=== PATIENT | male | born 1990 | race Caucasian/White ===

== ENCOUNTER 2022-08-19 08:13 | Outpatient (CLI) | payer BC, SELFPAY ==
--- NOTE | 2022-08-19 08:30 | ECG_ITS ---
Measurements Intervals [place] Rate: 65 P: 65 OK: 180 QRS: 41 QRSD: 86 T: 21 QT: 388 QTc: 406 Interpretive Statements SINUS RHYTHM VOLTAGE CRITERIA FOR LVH BASELINE ARTIFACT- I, II, III, AVR, AVL, AVF, V1 BORDERLINE ECG NO PREVIOUS ECG AVAILABLE FOR COMPARISON Electronically Signed On 08-19-2022 9:13:46 [employer]AKESHOP CLEANER by Mao Heredia D.O.
[2022-08-19 09:04] LABS: Anion Gap 6 mmol/L (8-16); Blood Urea Nitrogen 14 mg/dL (9-20); Calcium 9.2 mg/dL (8.4-10.2); Carbon Dioxide 30 mmol/L (22-30); Chloride 99 mmol/L (98-107); Estimated Glomerular Filt Rate > 60; Glucose 96 mg/dL (65-110); Potassium 4.1 mmol/L (3.4-5.0); Sodium 135 mmol/L (137-145)
== END 2022-08-19 08:14 | disposition home or self-care (01) ==
LOC: ANHSURGERY 08:21
PROVIDERS: Anesthesiology; Visit Provider Surgery Plastic and Reconstructive Surgery
DX: I10 Essential (primary) hypertension (principal); Z79.899 Other long term (current) drug therapy
CPT/HCPCS: 36415; 80048; 93005

== ENCOUNTER 2022-08-24 00:40 | Day surgery (SDC) | payer OTHER, SELFPAY ==
[2022-08-12 14:37] VITALS: BMI 23.6
--- NOTE | 2022-08-12 14:41 | PC.NURSE ---
Report to the Outpatient Waiting Room, entrance under the green pavilion located off [facility], at time 11:30 on date 08/24/22. Planned Procedure Time: 1:30. Time changes happen often and if your time is changed the preop area will call you the afternoon before. - You and your visitor will be asked to self-screen and do not enter if you have any COVID symptoms. - Only one visitor is requested with a max of two and NO children visitors are allowed at this time. - The patient visitor may be requested to leave or wait in car when not with patient due to distancing restrictions. - A mask is REQUIRED within the hospital. Patients may have clear liquids (water, carbonated beverages, clear teas, apple juice) until 3 hours prior to surgery (10:30) with a maximum of 20 ounces. - No food from midnight until time of surgery Take the following medications with a SIP of water the morning of surgery: INHALER IF NEEDED Medications to discontinue per physician: N/A Date to take last dose: N/A Please no make-up, nail setswana, hairspray, perfume, deodorant, or body powder the day of surgery. No jewelry (including any body piercings) or valuables the day of surgery, leave them at home. Please take a shower or bath the night before, or the morning of, surgery with an antibacterial soap. Wear comfortable, loose fitting clothing. - Jewelry must be removed prior to entering the operating room. Rings and piercings that are not removed may be cut off. - The hospital will not accept responsibility for valuables. - Please leave all valuables, including medications, at home the day of surgery. If you are going home after surgery, a licensed commercial trailer truck driver must drive you home. - NO public transportation without another adult if you receive anesthesia. - We recommend that an adult stay with you for 24 hours following discharge. - We also recommend that you do not drive, make important decision, drink alcoholic beverages, or take any drugs that were not prescribed by your health care provider for at least 24 hours after your discharge time. Follow any additional instructions given to you from your surgeon. If you or anyone in your household have experienced Covid symptoms in the past week, please notify your surgeon or the nurse liaison at the phone number below for possible testing. Telephone instructions given to PT - JAVAD SAUCEDA and asked if any additional questions and then verbalized understanding. Patient advised to call surgeon office or pre surgery nurse liaison [phone] if any additional questions.
[2022-08-24] VITALS (8 sets, daily range): BP systolic 122–139; BP diastolic 73–93; PULSE 61–76; RESP 12–18; TEMP 37; O2SAT 99–100
--- NOTE | 2022-08-24 13:48 | P.OP_ITS ---
Procedure Note - Detailed Date of Procedure 08/24/22 Pre-op Diagnosis Jad Gynecomastia Post-op Diagnosis Same Procedure Performed Treatment gynecomastia Surgeon Romario Tellez MD Anesthesia General Findings Lipoaspirate 150 cc Description of Procedure He is here today for the above procedure. Previously and again today the risks, benefits, alternatives were discussed in extensive detail. I wanted him to be very realistic about the risks involved as well as expectations. We discussed aftercare and what to monitor for. Discussed realistic expectations of outcome. Made sure I answered all of questions to satisfaction today and consent was obtained. He was marked in the preoperative holding area with his verification. The patient was taken to the operating room placed supine on the operating table. Anesthesia was provided by anesthesiology. Prepped and draped in a standard sterile fashion. A surgical time-out was taken. Stab incisions were made and I tumesced with a tumescent solution. A 15 blade was used to make an inferior areolar incision and dissection continued until the gland was identified. This was excised. Irrigated copiously with saline solution and verified a strict hemostasis. This was tailor tacked into place. I then proceeded with suction lipectomy based on S.A.F.E. technique using a 3mm basket cannula. This was in multiple planes and passes and based on pre- operative planning, intraoperative observation, and rolling pinch test which was in full agreement. He was placed in a sitting position to verify final contour. Incision was closed with 2-0 Vicryl, 3-0 Monocryl, and running subcuticular 4-0 Monocryl. Port sites closed with 4-0 Nylon. Dressing was placed. Patient was awoke and taken to PACU without difficulty. All instrument and sponge counts were correct at the end of the case. Estimated Blood Loss 20 Drains No Packing No Pathology None sent Complications No immediate complications Condition Stable Disposition PACU
--- NOTE | 2022-08-24 13:50 | WPDHPUPDATE1 ---
History and Physical Update Update Date/Time: 08/24/22 13:50 History and Physical has been reviewed, including an updated exam of the patient. There are NO changes in the patient's condition. Risks, benefits, and alternatives have been discussed and questions answered. Patient agrees to proceed with procedure.
--- NOTE | 2022-08-24 13:56 | SUR.OPER ---
1300 PT UPDATED ON SURGICAL TIME DELAY.
--- NOTE | 2022-08-24 13:59 | WPDANESEPPF ---
Anes - Initial Pre Proc Eval Procedure: Operation Date: 08/24/22 13:30 Proposed Procedures p Bilateral Reduction of Gynecomastia - Romario Tellez MD Date/Time: 08/24/22 13:59 Surgeon: Romario Tellez MD Pre Op Diagnosis: Jad Gynecomastia Patient Data Age: 31 Gender: M Height: 1.75 m Weight: 72.3 kg Last Vital Signs Temp 37.0 C 08/24/22 11:38 Pulse 76 08/24/22 11:38 Resp 16 08/24/22 11:38 BP 135/73 08/24/22 11:38 Pulse Ox 100 08/24/22 11:38 O2 Del Method Room Air 08/24/22 11:38 Allergies Allergy/AdvReac Type Severity Reaction Status Date / Time ibuprofen AdvReac Unknown Gastrointestinal Verified 08/24/22 11:45 Upset hydrocodone [From Vicodin] AdvReac Gastrointestinal Verified 08/24/22 11:45 Upset Home Medications Medication Instructions Recorded Confirmed Type albuterol sulfate 90 mcg/actuation 2 puff inhalation Q4H PRN 11/17/21 08/24/22 Rx aerosol inhaler shortness of breath or wheezing #8.5 grams hydrochlorothiazide 12.5 mg capsule 12.5 mg PO DAILY 08/12/22 08/24/22 History Patient hx anesthesia problems: none Family hx anesthesia problems: none Results Review: All pre-operative results and documents have been reviewed as part of the pre-operative evaluation. [facility] Past Medical History Medical History Abnormal iron saturation (06/22/19) total iron 186 with 52% saturation on 06/12/2019 . Iron normal at 92 with 27% saturation and ferritin 117 on 10/20/2021. Bicuspid aortic valve (~2019) BMI 23.0-23.9, adult Encounter for wellness examination Family history of heart disease Folic acid deficiency level low at 3.9 on 06/12/2019 . Folic acid normal at 11.5 on 10/20/2021. Mild asthma Mixed hyperlipidemia (06/22/19) total cholesterol 246, HDL 53, triglycerides 70, LDL 176 on 06/12/2019 . Total cholesterol 198, triglycerides 68, HDL 46, LDL 136 .Apo B Slightly elevated at 99 with optimal less than 90 and moderate 90-119 with high greater than 120. Apo A1 normal at 141 with optimal greater than 115 on 10/20/2021. Travel advice encounter Vitamin B12 deficiency anemia (10/20/21) Level slightly low at 355 with goal greater than 400 on 10/20/2021. Surgical History Surgical History History of appendectomy Family History Family History Other Carcinoma of colon Family history of coronary artery disease Family history of hypercholesterolemia Hypertension Social History Social History Smoking status: Never smoker Alcohol intake: current Alcohol use details: 1-2/MONTH Substance use: current Substance use type: marijuana Living arrangements: with family Spiritual care concerns: No Anes - Eval Final PreProcedure Day of Procedure 08/24/22 13:59 Patient weight: normal Heart: regular rate and rhythm Lungs: clear to auscultation Airway: Mallampati scale class II Neurological: alert and oriented Last oral intake: >/= 8 hours ASA classification: II Emergent: no Anesthetic plan: proceed Anesthesia type and monitoring: general LMA and standard monitoring Results Review: All pre-operative results and documents have been reviewed as part of the pre-operative evaluation. Informed Consent: The patient's anesthetic plan and its attendant risks and benefits were discussed with the patient/family/POA. Questions were solicited and answers provided to the satisfaction of the patient/family/POA.
[2022-08-24] MEDS: ceFAZolin 2 GM/D5W 50 ML 2 GM/50 ML BAG IVPB (14:29)
[2022-08-24] MEDS: SCOPOLAMINE 1.5 MG PATCH TRANSDERM (15:00)
[2022-08-24] MEDS: LACTATED RINGERS IRRIG 1,000 ML, LIDOCAINE HCL 1% LOCAL INJ 50 ML, EPINEPHrine HCL INJ ... INFILTRATE (15:25)
[2022-08-24] MEDS: LACTATED RINGERS 1,000 ML 30 ML IV CONT (15:43)
[2022-08-24] MEDS: traMADol HCL (*CRX) 50 MG TABLET 100 MG PO (16:48)
== END 2022-08-24 17:40 | disposition home or self-care (01) ==
PROVIDERS: Visit Provider Surgery Plastic and Reconstructive Surgery
PROC: (CPT 19300; principal; 2022-08-24 13:30)
DX: N62 Hypertrophy of breast (principal); Z79.51 Long term (current) use of inhaled steroids; Q23.1 Congenital insufficiency of aortic valve; F12.90 Cannabis use, unspecified, uncomplicated
CPT/HCPCS: 19300; A9270; J0171; J0690; J2250; J3010; J7120

== ENCOUNTER 2023-08-15 14:08 | Emergency (ER) | payer BC, SELFPAY ==
--- NOTE | ~2023-08-15 | XR_ITS ---
EXAMINATION: XR chest 2V DATE: 08/15/2023 14:30 INDICATION: Chest pain. TECHNIQUE: Frontal and lateral views of the chest were obtained. COMPARISON: None. FINDINGS: There is no pneumonia, pleural effusion, or pneumothorax. The heart size is normal. IMPRESSION: 1. No acute cardiopulmonary disease. Reviewed, dictated and finalized at location A. L ADMINISTRATIVE ASSISTANT
--- NOTE | 2023-08-15 14:09 | ECG_ITS ---
Measurements Intervals [place] Rate: 64 P: 52 OK: 169 QRS: 47 QRSD: 86 T: 27 QT: 392 QTc: 407 Interpretive Statements SINUS RHYTHM POSSIBLE LEFT ATRIAL ENLARGEMENT BORDERLINE ECG COMPARED TO ECG 08/19/2022 08:55:22 NO SIGNIFICANT CHANGES Electronically Signed On 08-15-2023 15:01:04 SHE[employer] ROCK SANDER by Mao Heredia D.O.
[2023-08-15 14:10] VITALS: BP 150/107; PULSE 66; RESP 18; TEMP 36.4; O2SAT 100
[2023-08-15 14:33] LABS: Basophils Percent Auto 0.4 % (0.2-1.2); Eosinophils Absolute Auto 0.2 K/mm3 (0-0.3); Eosinophils Percent Auto 4.1 % (0-4.4); Hematocrit 47.2 % (42.0-52.0); Hemoglobin 15.9 g/dL (14.0-18.0); Lymphocytes Absolute Auto 1.63 K/mm3 (0.9-3.2); Lymphocytes Percent Auto 35.1 % (18.3-44.2); Mean Corpuscular HGB Conc 33.7 g/dl (32-36); Mean Corpuscular Hemoglobin 30.6 pg (26-34); Mean Corpuscular Volume 90.8 fl (80-100); Mean Platelet Volume 9.7 fl (7.4-10.4); Monocytes Absolute Auto 0.7 K/mm3 (0.1-0.6); Monocytes Percent Auto 14.9 % (2.6-8.5); Neutrophils Absolute Auto 2.1 K/mm3 (1.3-6.7); Neutrophils Percent Auto 45.5 % (45.5-73.1); Platelet Count Result 213 k/mm3 (150-375); Red Cell Distribution Width 12.9 % (11.5-14.5); White Blood Count 4.6 K/mm3 (4.5-10.0)
[2023-08-15 14:43] LABS: Alanine Aminotransferase 15 U/L (6-50); Albumin Level 4.6 g/dL (3.5-5.1); Alkaline Phosphatase 40 U/L (38-126); Anion Gap 9 mmol/L (8-16); Aspartate Amino Transferase 23 U/L (17-59); Bilirubin,Total 0.7 mg/dL (0.2-1.3); Blood Urea Nitrogen 10 mg/dL (9-20); Calcium 9.1 mg/dL (8.4-10.2); Carbon Dioxide 28 mmol/L (22-30); Chloride 100 mmol/L (98-107); Estimated CRCL calculation 85 ml/min; Estimated Glomerular Filt Rate > 60; Glucose 113 mg/dL (65-110); Lipase 49 U/L (23-300); Potassium 3.7 mmol/L (3.4-5.0); Sodium 137 mmol/L (137-145)
[2023-08-15 14:54] LABS: Troponin I < 0.012 ng/mL (0.000-0.034)
--- NOTE | 2023-08-15 14:56 | ED.GENADULT ---
HPI - General Adult General Chief complaint: Chest Pain Stated complaint: chest pain and shortness of breath History of Present Illness HPI narrative: Ike Kate is a 32 y/o male with PMHx of HTN/ bicuspid regurgitation and followed by cardiology Dr. Johnson at [facility]- he was taken off of his B/P medications 3-5 months ago by his cardilogist. He present today with 48 hours of GI upset with diarrhea/ a lot of indigestion/ vomited twice, he started to feel somewhat better today and was having intercourse and started to have mid chest pain/ shortness of breath he stopped and checked his heart rate and it was in the 60s and he started to have intercourse again and the chest pressure pain returned and felt worse, he stopped rested and the pain / SOB continued he states he has never had chest pain like this before He adds that he has a family hx of his granfather/ father having heart attacks at the age of 40. Related Data Home Medications Medication Instructions Recorded Confirmed hydrochlorothiazide 12.5 mg capsule 12.5 mg PO DAILY 08/12/22 08/24/22 Allergies Allergy/AdvReac Type Severity Reaction Status Date / Time ibuprofen AdvReac Unknown Gastrointestinal Verified 08/24/22 11:45 Upset hydrocodone [From Vicodin] AdvReac Gastrointestinal Verified 08/24/22 11:45 Upset Review of Systems Review of Systems: All systems reviewed & are unremarkable except as noted in HPI and below PMFSH Past Medical History Medical History Abnormal iron saturation (06/22/19) total iron 186 with 52% saturation on 06/12/2019 . Iron normal at 92 with 27% saturation and ferritin 117 on 10/20/2021. Bicuspid aortic valve (~2018) BMI 23.0-23.9, adult Encounter for wellness examination Family history of heart disease Folic acid deficiency level low at 3.9 on 06/12/2019 . Folic acid normal at 11.5 on 10/20/2021. Mild asthma Mixed hyperlipidemia (06/22/19) total cholesterol 246, HDL 53, triglycerides 70, LDL 176 on 06/12/2019 . Total cholesterol 198, triglycerides 68, HDL 46, LDL 136 .Apo B Slightly elevated at 99 with optimal less than 90 and moderate 90-119 with high greater than 120. Apo A1 normal at 141 with optimal greater than 115 on 10/20/2021. Travel advice encounter Vitamin B12 deficiency anemia (10/20/21) Level slightly low at 355 with goal greater than 400 on 10/20/2021. Surgical History Surgical History History of appendectomy Family History Family History Other Carcinoma of colon Family history of coronary artery disease Family history of hypercholesterolemia Hypertension Social History Social History Smoking status: Never smoker Alcohol intake: current Alcohol use details: 1-2/MONTH Substance use: current Substance use type: marijuana Living arrangements: with family Spiritual care concerns: No Exam Const: General: healthy appearing and no acute distress Nutritional Appearance: well nourished Orientation/consciousness: patient oriented x3 Limitations: no limitations Eyes: Conjunctivae: conjunctivae normal Pupils: Equal, round and reactive pupils present Neck: Neck: normal visual inspection Resp: Effort & Inspection: normal respiratory effort Auscultation: clear to auscultation bilaterally Cardio: Rate: regular rate Rhythm: regular rhythm Skin: General skin exam: normal color Neuro: General: patient oriented x3 and moves all extremities Extrem: General: normal to inspection and no pedal edema Psych: Mental Status: mental status grossly normal Affect: normal affect Attitude: cooperative Course Vital Signs Vital signs: Vital Signs Temperature 36.4 C 08/15/23 14:10 Pulse Rate 66 08/15/23 14:10 Respiratory Rate 18
[2023-08-15 14:57] LABS: Prothrombin Time 13.2 Seconds (11.1-14.7)
[2023-08-15 14:58] LABS: Partial Thromboplastin Time 30.3 SECONDS (22.3-36.8)
[2023-08-15 16:34] VITALS: BP 117/85; PULSE 62; RESP 16; TEMP 36.7; O2SAT 100
--- NOTE | 2023-08-15 16:40 | ECG_ITS ---
Measurements Intervals [place] Rate: 57 P: 59 [place]: 172 QRS: 50 QRSD: 90 T: 21 QT: 395 QTc: 388 Interpretive Statements SINUS BRADYCARDIA POSSIBLE LEFT ATRIAL ENLARGEMENT RSR' IN V1 OR V2, PROBABLY NORMAL VARIANT BORDERLINE ECG COMPARED TO ECG 08/15/2023 14:15:27 SINUS BRADYCARDIA NOW PRESENT Electronically Signed On 08-16-2023 8:26:36 CUTTER MACHINE TENDER by Mao Heredia D.O.
[2023-08-15 17:06] LABS: Troponin I < 0.012 ng/mL (0.000-0.034)
--- NOTE | 2023-08-15 20:26 | PC.NURSE ---
Pt ambulated to the triage desk and informed this RN that he was leaving. Pt encouraged to stay. Pt ambulated out of the ED w/ steady gait.
== END 2023-08-15 20:26 | disposition left against medical advice (07) ==
PROVIDERS: Emergency Medicine; Emergency Provider Nurse Practitioner Family; PCP Family Medicine
DX: R07.89 Other chest pain (principal); I10 Essential (primary) hypertension; I35.1 Nonrheumatic aortic (valve) insufficiency; J45.909 Unspecified asthma, uncomplicated; E78.2 Mixed hyperlipidemia; D51.9 Vitamin B12 deficiency anemia, unspecified; R94.31 Abnormal electrocardiogram [ECG] [EKG]
CPT/HCPCS: 36415; 71046; 80053; 83690; 84484; 85025; 85610; 85730; 93005; 99284